=== PATIENT | female | born 1960 | race Caucasian/White ===

== ENCOUNTER 2020-03-11 15:29 | Observation (INO) | payer OTHER ==
[~2020-03-11] VITALS: Ht 172.7 cm; Wt 53.9 kg
--- NOTE | 2020-03-11 15:43 | PHYS DOC ---
Past History Past Medical History: Cancer (History of breast cancer), Other (History of multiple sclerosis) Past Surgical History: Cancer Surgery (Bilateral mastectomy 2011 secondary to breast cancer), Cervical Fusion (2011) Adult General HPI HPI Patient is a 59-year-old female who presents via EMS for suspect stroke. Patient's last known normal was 1540 hrs. Patient reportedly feeling poorly for preceding 48hr resulting in her being sent home from work today. She drove to local Urgent Care and was asked to give a urine sample. After coming out of the bathroom, patient's mentation greatly decreased, patient was diaphoretic and aphasic. She was alert but not oriented to person, place or time. EMS was called for transport to our facility for concern of stroke. Of note, there was no fall or trauma while at . On arrival to our facility, patient alert, oriented to person and stated she thought she was in [place]. Was unable to tell me the year, date or time. She experienced x1 episode of nonbloody nonbilious emesis while on CT scan table. She denies any falls or trauma or other concerning ingestions. She has had no changes in health recently, no Covid exposure. No tobacco use, reports drinking " a couple" beers daily, no illicit drug abuse. Further history was elicited from sister who reports patient has history of bilateral mastectomy due to breast cancer with unknown status, also has history of MS. Patient sees Dr. Campos as her PCP and all other specialists are at [facility] in [place]. States patient vocalized recent URI and UTI-like symptoms Review of Systems Review of Systems Fourteen body systems of review of systems have been reviewed. See HPI for pertinent positives and negative responses, other barr all other systems are negative, non-pertinent or non-contributory Physical Exam Physical Exam Constitutional: Pt is oriented to person only, appears confused. Slowed verbal responses. HEENT: Head: Normocephalic and atraumatic. TMs clear, no hemotympanum Conjunctivae and EOM are normal. Pupils are equal, round, and reactive to light. Oropharynx is clear and dry No hematomas or lacerations or abrasions to face or scalp OP clear, no blood, no malocclusion, dentition intact Nares clear, no nasal septal hematoma Midface stable Neck: C-spine midline nontender, no step-offs Cardiovascular: Normal rate, regular rhythm and normal heart sounds. Pulmonary/Chest: Effort normal and breath sounds normal. No respiratory distress. No wheezes. CTA bilaterally Abdominal: Soft. Bowel sounds are normal. Pt exhibits no distension. There is no tenderness. No peritoneal signs Musculoskeletal: No bony tenderness to extremities, no deformities, full ROM extremities Chest wall stable Pelvis stable and non-tender No vertebral TTP and spine without stepoffs Neurological: Pt is alert and oriented to person and states she is in [place], when asked about the year blankly starfabien and states "1" Moving all extremities willfully, able to wiggle all fingers and toes Sensation grossly intact to pain Nonambulatory due to unsteady gait and coordination Downward going toes bilaterally Skin: Skin is warm and dry. No abrasions, no lacerations Psychiatric: Unable to accurately assess Current Patient Data Vital Signs Vital Signs Date Time Temp Pulse Resp B/P (MAP) Pulse Ox O2 Delivery O2 Flow Rate FiO2 03/11/20 20:22 98.9 94 20 101/51 (68) 96 Room Air Lab Results Laboratory Tests Test 03/11/20 15:43 03/11/20 15:45 03/11/20 16:28 Glucose (Fingerstick) 151 mg/dL (70-99) White Blood Count 4.2 x10^3/uL (4.0-11.0) Red Blood Count 3.85 x10^6/uL (3.50-5.40) Hemoglobin 11.5 g/dL (12.0-15.5) Bedside Hemoglobin 10.5 gm/dL Hematocrit 34.7 % (36.0-47.0) Bedside Hematocrit 31 % Mean Corpuscular Volume 90 fL (79-100) Mean Corpuscular Hemoglobin 30 pg (25-35) Mean Corpuscular Hemoglobin Concent 33 g/dL (31-37) Red Cell Distribution Width 13.1 % (11.5-14.5) Platelet Count 126 x10^3/uL (140-400) Neutrophils (%) (Auto) 97 % (31-73) Lymphocytes (%) (Auto) 2 % (24-48) Monocytes (%) (Auto) 1 % (0-9) Eosinophils (%) (Auto) 0 % (0-3) Basophils (%) (Auto) 0 % (0-3) Neutrophils # (Auto) 4.1 x10^3uL (1.8-7.7) Lymphocytes # (Auto) 0.1 x10^3/uL (1.0-4.8) Monocytes # (Auto) 0.0 x10^3/uL (0.0-1.1) Eosinophils # (Auto) 0.0 x10^3/uL (0.0-0.7) Basophils # (Auto) 0.0 x10^3/uL (0.0-0.2) Prothrombin Time 11.0 SEC (9.4-11.4) Prothromb Time International Ratio 1.1 (0.9-1.1) Activated Partial Thromboplast Time 25 SEC (23-33) Bedside Sodium 139 mmol/L (135-145) Sodium Level 140 mmol/L (136-145) Bedside Potassium 3.5 mmol/L (3.5-5.0) Potassium Level 3.7 mmol/L (3.5-5.1) Bedside Chloride 103 mmol/L (98-110) Chloride Level 103 mmol/L (98-107) Carbon Dioxide Level 26 mmol/L (21-32) Bedside Total CO2 23 mmol/L (23-32) Anion Gap 17 mmol/L (6-14) Bedside Blood Urea Nitrogen 11 mg/dL (8-26) Blood Urea Nitrogen 12 mg/dL (7-20) Creatinine 1.5 mg/dL (0.6-1.0) Bedside Creatinine 1.3 mg/dL (0.5-1.4) Estimated GFR (Cockcroft-Gault) 35.3 BUN/Creatinine Ratio 8 (6-20) Glucose Level 150 mg/dL (60-99) Calcium Level 8.6 mg/dL (8.5-10.1) Bedside Ionized Calcium (Marjan) 1.22 mmol/L (1.13-1.32) Total Bilirubin 0.7 mg/dL (0.2-1.0) Aspartate Amino Transf (AST/SGOT) 21 U/L (15-37) Alanine Aminotransferase (ALT/SGPT) 23 U/L (14-59) Alkaline Phosphatase 47 U/L (46-116) Ammonia 16 mcmol/L (11-34) Creatine Kinase 92 U/L (26-192) Bedside Troponin I 0.18 ng/ml (<0.08) HA-Vac-H-Type Natriuretic Peptide 1289 pg/mL (0-124) Total Protein 6.1 g/dL (6.4-8.2) Albumin 3.6 g/dL (3.4-5.0) Albumin/Globulin Ratio 1.4 (1.0-1.7) Urine Collection Type Unknown Urine Color Yellow Urine Clarity Clear Urine pH 5.0 Urine Specific [place] 1.020 Urine Protein 30 mg/dl (NEG-TRACE) Urine Glucose (UA) 100 mg/dL (NEG) Urine Ketones (Stick) Neg mg/dL (NEG) Urine Blood Mod (NEG) Urine Nitrite Neg (NEG) Urine Bilirubin Neg (NEG) Urine Urobilinogen Dipstick 0.2 mg/dL (0.2 mg/dL) Urine Leukocyte Esterase Trace (NEG) Urine RBC 6-10 /HPF (0-2) Urine WBC 5-10 /HPF (0-4) Urine Squamous Epithelial Cells None /LPF Urine Bacteria 0 /HPF (0-FEW) Urine Opiates Screen Neg (NEG) Urine Methadone Screen Neg (NEG) Urine Barbiturates Neg (NEG) Urine Phencyclidine Screen Neg (NEG) Urine Amphetamine/Methamphetamine Neg (NEG) Urine Benzodiazepines Screen Neg (NEG) Urine Cocaine Screen Neg (NEG) Urine Cannabinoids Screen Neg (NEG) Urine Ethyl Alcohol Neg (NEG) EKG EKG EKG ordered and interpreted by myself at 1552 hrs. as sinus rhythm at 116 bpm, unremarkable intervals, no axis deviation, no acute ischemic findings, no STEMI Radiology/Procedures Radiology/Procedures CT scan of the head without contrast 03/11/2020 Clinical History: Sudden onset of aphasia. Technique: Unenhanced, contiguous, 5 mm axial sections were obtained through the head. One or more of the following individualized dose reduction techniques were utilized for this study: 1. Automated exposure control. 2. Adjustment of the mA and/or kV according to patient size. 3. Use of iterative reconstruction technique. Findings: There is generalized parenchymal atrophy. Areas of decreased attenuation are seen within the periventricular and subcortical white matter of both cerebral hemispheres consistent with areas of small vessel ischemic disea se. No acute parenchymal abnormality is seen. No extra-axial fluid collection is noted. No skull fracture is seen. Impression: No acute intracranial abnormality is seen. This result was called to the emergency department. Electronically signed by: Gage Santos MD (03/11/2020 3:52 PM) [id number] EXAM: XR CHEST 1V INDICATION: Reason: / Spl. Instructions: / History: . TECHNIQUE: Single view COMPARISON: None FINDINGS: The heart size is normal. The great vessels appear unremarkable. There is no hilar or mediastinal mass. The lungs are clear. There is no pleural effusion or pneumothorax. There are no significant osseous abnormalities. There are surgical clips in the bilateral axillae. These could reflect surgical changes from previous bilateral mastectomy. IMPRESSION: 1. No acute cardiopulmonary process. 2. Postsurgical changes from previous bilateral mastectomy. Electronically signed by: Tabatha Gtz MD (03/11/2020 3:51 PM) [id number] Heart Score HEART Score for Chest Pain: HEART Score for Chest Pain Response (Comments) Value History Slighlty/Non-Suspicious 0 ECG Normal 0 Age >45 - < 65 1 Risk Factors 1 or 2 Risk Factors 1 Troponin < Normal Limit 0 Total 2 Risk Factors: Risk Factors: DM, Current or recent (<one month) smoker, HTN, HLP, family history of CAD, obesity. Risk Scores: Risk Factors: DM, Current or recent (<one month) smoker, HTN, HLP, family history of CAD, obesity. Course & Med Decision Making Course & Med Decision Making Patient initially presented as code stroke. POC glucose unremarkable, no neuro focal deficits on CT table, CT head negative. Patient did vomit while on table Patient transported back to ER room. Airway patent, breathing unlabored, vitals remarkable for fever and slight tachycardia Patient's mentation continued to fluctuate making HPI difficult to obtain. Patient's sister and POA were contacted via phone and confirmed patient's reported UTI-like symptoms and other Further comprehensive physical exam and diagnostic workup pursued Patient's mentation to continued to wax and wane. [facility] contacted and further history obtained from on-call Neurologist and transfer physician Workup grossly unremarkable with suspect UA for acute infection that could be causing fever and AMS. Given recent rhinorrhea and fever patient PUI for COVID with results pending I planned for LP to further evaluate patient but at time of planned procedure, patient's mentation appeared back at baseline. Patient on repeat examination had full capacity. Initially cited she wanted to go home and plans were made for patient to leave AMA but patient's POA discussed case with patient and she was amenable for admission Hospitalist called and case discussed, Dr. Brown to admit patient for further workup and medical management. I updated patient on plan of care. Patient stabilized prior to ER transport to [facility] for further inpatient management Critical Care Time This patient required critical care. Due to the fact that the patient required a significant amount of one on one physician - patient contact time, ordering and review of studies, arranging urgent treatment with development of a management plan, evaluation of patients response to treatment with frequent reassessments, and discussions with other providers this patient required critical care time in excess of 30 minutes. Critical care time was indicated due to the inherent instability and/or potential for instability in this patient. The critical care time that is allocated to this patient is above and beyond any time spent on any other billable procedures performed on this patient. Dragon Disclaimer Dragon Disclaimer This electronic medical record was generated, in whole or in part, using a voice recognition dictation system. Departure Departure: Impression: Primary Impression: UTI (urinary tract infection) Additional Impressions: Sepsis Acute hypoactive delirium due to another medical condition Person under investigation for COVID-19 Disposition: 09 ADMITTED INPT THIS HOSP Admitting Physician: Cedrick Brown Condition: IMPROVED Problem Qualifiers TOBIAS RAO DO Mar 11, 2020 15:43
--- NOTE | 2020-03-11 15:52 | EKG ---
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
--- NOTE | 2020-03-11 15:54 | RAD ---
EXAM: XR CHEST 1V INDICATION: Reason: / Spl. Instructions: / History: . TECHNIQUE: Single view COMPARISON: None FINDINGS: The heart size is normal. The great vessels appear unremarkable. There is no hilar or mediastinal mass. The lungs are clear. There is no pleural effusion or pneumothorax. There are no significant osseous abnormalities. There are surgical clips in the bilateral axillae. These could reflect surgical changes from previous bilateral mastectomy. IMPRESSION: 1. No acute cardiopulmonary process. 2. Postsurgical changes from previous bilateral mastectomy. Electronically signed by: Tabatha Gzt MD (03/11/2020 3:51 PM) [id number]
--- NOTE | 2020-03-11 15:55 | RAD ---
CT scan of the head without contrast 03/11/2020 Clinical History: Sudden onset of aphasia. Technique: Unenhanced, contiguous, 5 mm axial sections were obtained through the head. One or more of the following individualized dose reduction techniques were utilized for this study: 1. Automated exposure control. 2. Adjustment of the mA and/or kV according to patient size. 3. Use of iterative reconstruction technique. Findings: There is generalized parenchymal atrophy. Areas of decreased attenuation are seen within th e periventricular and subcortical white matter of both cerebral hemispheres consistent with areas of small vessel ischemic disease. No acute parenchymal abnormality is seen. No extra-axial fluid collect ion is noted. No skull fracture is seen. Impression: No acute intracranial abnormality is seen. This result was called to the emergency department. Electronically signed by: Gage Santos MD (03/11/2020 3:52 PM) [id number]
[2020-03-11] MEDS ORDERED: IV NORMAL SALINE 1,000ML 1,000 ML IV ONE (16:00)
[2020-03-11 16:22] LABS: BASO % 0 % (0-3); EOS % 0 % (0-3); HEMATOCRIT 34.7 % (36.0-47.0); HEMOGLOBIN 11.5 g/dL (12.0-15.5); LYMPH # 0.1 x10^3/uL (1.0-4.8); LYMPH % 2 % (24-48); MEAN CORPUSCULAR HEMOGLOBIN 30 pg (25-35); MEAN CORPUSCULAR HGB CONC 33 g/dL (31-37); MEAN CORPUSCULAR VOLUME 90 fL (79-100); MONO % 1 % (0-9); NEUT # 4.1 x10^3uL (1.8-7.7); NEUT % 97 % (31-73); PLATELET COUNT 126 x10^3/uL (140-400); RED BLOOD COUNT 3.85 x10^6/uL (3.50-5.40); RED CELL DISTRIBUTION WIDTH 13.1 % (11.5-14.5); WHITE BLOOD COUNT 4.2 x10^3/uL (4.0-11.0)
[2020-03-11] MEDS ORDERED: ACETAMINOPHEN 500 MG TABLET PO ONE (16:30)
[2020-03-11 16:44] LABS: POTASSIUM ISTAT 3.5 mmol/L (3.5-5.0)
[2020-03-11 16:45] LABS: HEMOGLOBIN ISTAT 10.5 gm/dL
[2020-03-11 17:01] LABS: BARBITURATES NEG (NEG); BENZODIAZEPINES NEG (NEG); CANNABINOIDS NEG (NEG); COCAINE NEG (NEG); METHADONE NEG (NEG); OPIATES NEG (NEG); PHENCYCLIDINE NEG (NEG)
[2020-03-11 17:02] LABS: AMPHETAMINE/METHAMPHETAMINE NEG (NEG)
[2020-03-11 17:09] LABS: CALCIUM 8.6 mg/dL (8.5-10.1); CREATININE 1.5 mg/dL (0.6-1.0); GFR 35.3; POTASSIUM 3.7 mmol/L (3.5-5.1)
[2020-03-11 17:16] LABS: BILIRUBIN,URINE NEG (NEG); CLARITY,URINE CLEAR; COLOR,URINE YELLOW; GLUCOSE,URINE 100 mg/dL (NEG); NITRITE,URINE NEG (NEG); UROBILINOGEN,URINE 0.2 mg/dL (0.2 mg/dL)
[2020-03-11 17:17] LABS: BACTERIA,URINE 0 /HPF (0-FEW)
[2020-03-11 17:22] LABS: ALBUMIN 3.6 g/dL (3.4-5.0); ALBUMIN/GLOBULIN RATIO 1.4 (1.0-1.7); TOTAL BILIRUBIN 0.7 mg/dL (0.2-1.0); TOTAL PROTEIN 6.1 g/dL (6.4-8.2)
[2020-03-11] MEDS ORDERED: IV NORMAL SALINE 500ML 500 ML IV ONE (17:45)
[2020-03-11] MEDS ORDERED: cefTRIAXone SODIUM 1 GM VIAL ONE (17:47)
[2020-03-11] MEDS ORDERED: CEPH-264 PO (17:50)
--- NOTE | 2020-03-11 19:50 | NUR ---
ADMISSION: The patient, EPIFANIO BERNARD, 59 y/o, F admitted by JAGUAR ALLEN MD, was given written information regarding hospital policies, unit procedures and contact persons. Pt arrived to room 122 via gurney, accompanied by [facility] and ED staff. Pt swabbed for Covid-19 while in ED, placed in contact and airborne isolation pending results. Per report, pt was quite confused and disoriented upon arrival to ED. Pt now A/Ox4, pleasant and interactive but reluctant to stay overnight. VSS, afrebrile. Telemetry placed, showing SR with rate in the 90's. Pt received Rocephin 1gm IV x1 while in ED, for UTI. Discussed POC, pt V/U. Pt agreeable to stay and see hospitalist in AM. Call light in reach. Valuables were checked and logged. Left in room with pt.
[2020-03-11 20:22] VITALS: BP 101/51
[2020-03-11] MEDS ORDERED: BACL20TA PO (21:06)
[2020-03-11] MEDS ORDERED: PREG300C PO (21:06)
[2020-03-11] MEDS ORDERED: ROPI0.25 PO (21:06)
--- NOTE | 2020-03-11 21:19 | NUR ---
PT UNSURE OF COMPLETE HOME MED LIST. PT ABLE TO RECALL DOSING OF LYRICA, BACLOFEN, AND REQUIP. PT PROVIDED NUMBER FOR HER SISTER (YAYA) WHO HAS ACCESS TO HER MEDS, BUT YAYA IS NOT CURRENTLY HOME AND UNABLE TO PROVIDE LISTS. DR. ALLEN CONTACTED, INFORMED OF PT STATUS, AND KNOWN MEDS ORDERED FOR HS.
[2020-03-11] MEDS ORDERED: rOPINIRole 0.25 MG TABLET. PO SCH (21:30)
[2020-03-11] MEDS ORDERED: BACLOFEN 20 MG TABLET PO PRN (21:30)
[2020-03-11] MEDS: PREGABALIN 75 MG CAPSULE PO SCH (22:02)
[2020-03-11 22:24] VITALS: BP 105/51
[2020-03-12 05:49] VITALS: BP 96/52
[2020-03-12 06:27] LABS: CALCIUM 7.7 mg/dL (8.5-10.1); CREATININE 1.4 mg/dL (0.6-1.0); GFR 38.2; POTASSIUM 4.2 mmol/L (3.5-5.1)
[2020-03-12] MEDS: PREGABALIN 75 MG CAPSULE PO SCH (08:05)
--- NOTE | 2020-03-12 10:57 | HP ---
ADMIT DATE: 03/11/2020 ATTENDING PHYSICIAN: Dr. Jaguar Allen CHIEF COMPLAINT: Altered mentation. HISTORY OF PRESENT ILLNESS: This is a 59-year-old female with several medical issues including multiple sclerosis and breast cancer. Her family brought her in, feeling poorly. She went to a local urgent care, asked to give a urine specimen. Her mentation decreased. She was diaphoretic and was not oriented. She was worked up for code stroke. The workup was fairly unremarkable. CT scan showed no evidence of acute stroke. She had one episode of emesis. Her urinalysis showed an early UTI. She drinks a couple of beers daily. She sees Dr. Campos as a primary care physician as well as specialist [facility]. She has no COVID exposure. She was admitted then with eventually UTI, observation and antibiotic therapy. PAST MEDICAL HISTORY: Significant for breast cancer, multiple sclerosis, bilateral mastectomy in 2011, cervical fusion at the same time. Her medicines were reviewed. ALLERGIES: She has no recorded drug allergies. CURRENT MEDICATIONS: Include baclofen, Lyrica, and Requip. SOCIAL HISTORY: She is a nonsmoker, social drinker. FAMILY HISTORY: Mom is still alive and active at age 81. Father has of heart disease, unspecified age. REVIEW OF SYSTEMS: Significant for the episode of confusion, which resolved. She had no recent travel, shortness of breath, cough, congestion, fevers or chills. All other systems reviewed and turned to be negative. PHYSICAL EXAMINATION: GENERAL: When I saw her, this is a pleasant, middle-aged female. INITIAL VITAL SIGNS: Showed a blood pressure of 105/51, pulse is 94 and regular, temperature 98.7 degrees Fahrenheit, and her oxygen saturation 98% on room air. HEENT: Head is without trauma. Pupils are reactive. Sclerae nonicteric. Oropharynx clear. NECK: Supple. LUNGS: Clear. There is surgical absence of breasts. CARDIOVASCULAR: Showed regular heart tones. No gallops. ABDOMEN: Soft, no guarding or rebound tenderness. EXTREMITIES: Without edema. NEUROLOGIC: Focally intact. Speech is fluent. Quality Control Microbiologist intact. LABORATORY DATA: Hemoglobin was 11.5 g/dL with white count of 4200. Electrolytes within normal range. Creatinine is 1.4 mg/dL, nonfasting blood sugar 150, repeated was down to 100. Transaminases were normal. Troponin was slightly elevated at 0.18 suggestive of a stress demand ischemia. She had no other symptoms. Her obligatory CT of the head showed no acute intracranial process identified. Chest x-ray was entirely clear. Postsurgical changes from previous bilateral mastectomy. Urine cultures were pending. ASSESSMENT: 1. A 59-year-old female with urinary tract infection. 2. Altered mentation. Stroke ruled out. She is back to her baseline. 3. History of alcohol use. 4. History of multiple sclerosis. 5. History of breast cancer with bilateral mastectomy. PLAN: 1. Admit to observation status. 2. Diet as tolerated. 3. Empiric antibiotics. 4. Await results of cultures. JAGUAR ALLEN MD DR: NHI/becky JOB#: [id number] / [id number] ERVIN See MD
--- NOTE | 2020-03-12 10:58 | NUR ---
Nursing Note Pt pleasant cooperative alert and oriented denies any pain or neuro type symptoms. States she is ready to go home is asking her sister to pick her up. Denies questions, prescription for antibiotic and instructions given to patient. Wheeled by WC to lobby to sister.
--- NOTE | 2020-03-12 12:23 | DS ---
DATE OF DISCHARGE: 03/12/2020 ATTENDING PHYSICIAN: Dr. Jaguar Allen FINAL DISCHARGE DIAGNOSES: 1. Altered mentation, resolved. 2. Stroke ruled out. 3. Delirium, resolved. 4. Urinary tract infection. 5. History of multiple sclerosis. 6. History of bilateral breast cancer. HISTORY AND PHYSICAL: This is a pleasant 59-year-old female. She has some altered mentation, confusion, was a bit aphasic. She was brought in with a code stroke, stroke was ruled out. Her CT of the head showed no acute changes. She was back to her baseline. She did have a urinary tract infection. Cultures were pending and that she was treated accordingly. She was given antibiotics. She was admitted overnight for observation. She has no recent COVID exposure. She denied any fevers, chills or cough. She is a nonsmoker. PHYSICAL EXAMINATION: Please see the dictated note. PERTINENT LABORATORY AND X-RAY STUDIES: Her urinalysis showed some white cells and leukocyte esterase. Cultures are pending. Hemoglobin was 11.5 g/dL with white count of 4200. Electrolytes within normal range. Creatinine is 1.4 mg percent, potassium 4.2 mEq. Transaminases were normal. Her troponin point of contact was 0.18, slightly above the upper limits of normal. I suspect this is due to stress demand and that she had no symptoms otherwise. Her CT of the head showed no acute changes. Chest x-ray was clear without any acute infiltrates. COURSE IN THE HOSPITAL: She was given intravenous Rocephin. She had her home meds continued. Diet was advanced. She did well. By the second hospital day and by the time I saw her, her vital signs were quite stable with a blood pressure 105/51, pulse is 90 and regular, temperature 98.7 degrees Fahrenheit, oxygen saturation 98% on room air. Her speech was fluent. Antenna Installer intact and she wanted to go home for Lat[place]. I felt this is reasonable. I recommended 6 more days of cephalexin 500 mg p.o. t.i.d., no changes on her home meds, they include her baclofen, Lyrica, and Requip, doses unchanged. She will followup with her PCP the scheduled time as well as her specialist. The patient was then discharged from our hospital in stable condition with explicit instructions and followup care. JAGUAR ALLEN MD DR: NHI/becky JOB#: [id number] / [id number] ERVIN See MD
--- NOTE | 2020-03-16 10:43 | NUR ---
IP: notified patient of COVID result.
== END 2020-03-12 10:45 | disposition home or self-care (01) ==
LOC: ER 15:29 → 1 SOUTH 18:06 → INTOOBSV 18:06
PROVIDERS: ADMIT Hospitalist; ATTEND Hospitalist
DX: A41.9 Sepsis, unspecified organism (principal); Z20.828 Contact with and (suspected) exposure to other viral communicable diseases; R41.82 Altered mental status, unspecified; N39.0 Urinary tract infection, site not specified; F05 Delirium due to known physiological condition; R47.01 Aphasia; G35 Multiple sclerosis; F10.10 Alcohol abuse, uncomplicated; Z85.3 Personal history of malignant neoplasm of breast; Z90.13 Acquired absence of bilateral breasts and nipples; Z98.890 Other specified postprocedural states; Z79.899 Other long term (current) drug therapy
CPT/HCPCS: 36415; 70450; 71045; 80047; 80048; 80053; 80307; 81001; 82140; 82550; 82947; 83880; 84484; 85025; 85610; 85730; 87040; 87086; 87205; 93005; 96361; 96365; 99285; G0378; J0696; J7030; J7040; U0003; 87077; 87186; 96366; G0379